=== PATIENT | male | born 1970 | race Caucasian/White ===

== ENCOUNTER 2020-06-12 00:17 | Emergency (ER) | payer OTHER ==
[~2020-06-12] VITALS: Ht 185.4 cm; Wt 69.0 kg
[~2020-06-12 00:17] MED LIST: ALBU90OI INH; AMOX500 PO; CLIN300 PO; CYCL10 PO; DOXY100 PO; DULO30 PO; Esgic Tablet1 EACH PO; HYDACE5 PO; HYDMOR4 PO; META800 PO; METPRE4DP PO; NAPR500 PO; NAPR550 PO; OXYACE5T PO; OXYC10TA19 PO; RXHYDACE PO; TRAM50 PO; TRAZ50 PO; ZOLP5 PO
[2020-06-12 01:31] LABS: BASOPHILS ABSOLUTE AUTO 0.03 K/mm3 (0.00-0.23); BASOPHILS PERCENT AUTO 0 % (0-2); EOSINOPHILS ABSOLUTE AUTO 0.03 K/mm3 (0.00-0.68); EOSINOPHILS PERCENT AUTO 0 % (0-6); Hematocrit 32.2 % (37.0-53.0); Hemoglobin 10.6 g/dL (13.5-17.5); IMMATURE GRAN ABSOLUTE AUTO 0.06 K/mm3 (0.00-0.10); IMMATURE GRAN PERCENT AUTO 0 % (0-1); LYMPHOCYTES ABSOLUTE AUTO 1.22 K/mm3 (0.84-5.20); LYMPHOCYTES PERCENT AUTO 8 % (21-46); MONOCYTES ABSOLUTE AUTO 0.99 K/mm3 (0.16-1.47); MONOCYTES PERCENT AUTO 7 % (4-13); Mean Corpuscular HGB 31.3 pg (26.0-34.0); Mean Corpuscular HGB Conc 32.9 g/dL (31.5-36.5); Mean Corpuscular Volume 95 fL (80-100); Mean Platelet Volume 10.7 fL (9.1-12.4); NEUTROPHILS ABSOLUTE AUTO 12.34 K/mm3 (1.96-9.15); NEUTROPHILS PERCENT AUTO 84 % (41-73); Platelet Count 218 K/mm3 (150-400); RDW Coefficient Variation 14.1 % (11.7-14.2); RDW Standard Deviation 49.4 fL (35.1-46.3); Red Blood Cell Count 3.39 M/mm3 (4.30-5.90); White Blood Cell Count 14.67 K/mm3 (4.00-11.30)
[2020-06-12 01:50] LABS: Alanine Aminotransfer (ALT/SGP 34 U/L (12-78); Albumin/Globulin Ratio 0.7 (0.8-1.8); Alk Phos 115 U/L (50-136); Anion Gap 6 mmol/L (6-16); Aspartate Aminotrans (AST/SGOT 25 U/L (12-37); Bilirubin, Total 0.4 mg/dL (0.1-1.0); Blood Urea Nitrogen 22 mg/dL (8-24); Bun/Creatinine Ratio 28.3 (12.0-20.0); CO2, Blood 28 mmol/L (21-32); Calcium, Blood 8.5 mg/dL (8.5-10.1); Chloride, Blood 107 mmol/L (98-108); Creatinine, Blood 0.78 mg/dL (0.60-1.20); Globulin, Blood 4.2 g/dL (2.2-4.0); Glomerular Filtration Rate >60 (60-); Glucose, Blood 97 mg/dL (70-99); Potassium, Blood 3.4 mmol/L (3.5-5.5); Sodium, Blood 141 mmol/L (136-145); Total Protein, Blood 7.2 g/dL (6.4-8.2)
[2020-06-12] MEDS ORDERED: Cleocin HCl300 MG PO (03:07)
== END 2020-06-12 03:20 | disposition home or self-care (01) ==
LOC: ER 00:17
PROVIDERS: Emergency Medicine
DX: L03.114 Cellulitis of left upper limb (principal); F17.200 Nicotine dependence, unspecified, uncomplicated
CPT/HCPCS: 36415; 73201; 80053; 83605; 85025; 87040; 96361; 96365; 96375; 99284-25; J2405; J3010; J7030; Q9967

== ENCOUNTER 2020-07-01 07:09 | Emergency (ER) | payer OTHER ==
[~2020-07-01] VITALS: Ht 185.4 cm; Wt 68.0 kg
[~2020-07-01 07:09] MED LIST changes: +Cleocin HCl300 MG PO
[2020-07-01] MEDS ORDERED: CEPH500 PO (07:38)
[2020-07-01] MEDS ORDERED: NAPROXEN250 M1 PO (07:39)
== END 2020-07-01 07:46 | disposition home or self-care (01) ==
LOC: ER 07:09
DX: M70.22 Olecranon bursitis, left elbow (principal); F17.200 Nicotine dependence, unspecified, uncomplicated
CPT/HCPCS: 99283; A9270

== ENCOUNTER 2021-11-07 13:55 | Emergency (ER) | payer OTHER ==
[~2021-11-07] VITALS: Ht 185.4 cm; Wt 84.2 kg
[~2021-11-07 13:55] MED LIST changes: +CEPH500 PO; +NAPROXEN250 M1 PO
[2021-11-07] MEDS ORDERED: NAPR500 PO (15:05)
== END 2021-11-07 15:09 | disposition home or self-care (01) ==
LOC: ER 13:55
DX: M17.12 Unilateral primary osteoarthritis, left knee (principal); F17.200 Nicotine dependence, unspecified, uncomplicated; Z88.6 Allergy status to analgesic agent; Z88.5 Allergy status to narcotic agent
CPT/HCPCS: 73562-LT; J1885

== ENCOUNTER 2022-02-20 00:15 | Emergency (ER) | payer OTHER ==
[~2022-02-20] VITALS: Ht 185.4 cm; Wt 72.6 kg
[2022-02-20] MEDS ORDERED: ABILIFY5 MG PO (01:03)
[2022-02-20] MEDS ORDERED: HYDHCL25 PO (01:09)
[2022-02-20] MEDS ORDERED: SULTRIDS PO (01:09)
== END 2022-02-20 01:33 | disposition home or self-care (01) ==
LOC: ER 00:15
DX: L73.9 Follicular disorder, unspecified (principal); L03.114 Cellulitis of left upper limb; L03.113 Cellulitis of right upper limb; F17.200 Nicotine dependence, unspecified, uncomplicated; Z79.899 Other long term (current) drug therapy
CPT/HCPCS: 99282; A9270

== ENCOUNTER 2023-03-02 01:18 | Emergency (ER) | payer OTHER ==
[~2023-03-02] VITALS: Ht 185.4 cm; Wt 81.7 kg
[~2023-03-02 01:18] MED LIST changes: +ABILIFY5 MG PO; +HYDHCL25 PO; +SULTRIDS PO
[2023-03-02 03:12] LABS: BASOPHILS ABSOLUTE AUTO 0.06 K/mm3 (0.00-0.23); BASOPHILS PERCENT AUTO 1 % (0-2); EOSINOPHILS ABSOLUTE AUTO 0.74 K/mm3 (0.00-0.68); EOSINOPHILS PERCENT AUTO 11 % (0-6); Hematocrit 38.2 % (37.0-53.0); Hemoglobin 12.9 g/dL (13.5-17.5); IMMATURE GRAN ABSOLUTE AUTO 0.01 K/mm3 (0.00-0.10); IMMATURE GRAN PERCENT AUTO 0 % (0-1); LYMPHOCYTES ABSOLUTE AUTO 1.76 K/mm3 (0.84-5.20); LYMPHOCYTES PERCENT AUTO 25 % (21-46); MONOCYTES ABSOLUTE AUTO 0.66 K/mm3 (0.16-1.47); MONOCYTES PERCENT AUTO 10 % (4-13); Mean Corpuscular HGB 31.2 pg (26.0-34.0); Mean Corpuscular HGB Conc 33.8 g/dL (31.5-36.5); Mean Corpuscular Volume 93 fL (80-100); Mean Platelet Volume 9.5 fL (9.1-12.4); NEUTROPHILS ABSOLUTE AUTO 3.75 K/mm3 (1.96-9.15); NEUTROPHILS PERCENT AUTO 54 % (41-73); Platelet Count 262 K/mm3 (150-400); RDW Coefficient Variation 14.2 % (11.7-14.2); RDW Standard Deviation 48.1 fL (35.1-46.3); Red Blood Cell Count 4.13 M/mm3 (4.30-5.90); White Blood Cell Count 6.98 K/mm3 (4.00-11.30)
[2023-03-02 03:35] LABS: Albumin, Blood 3.6 g/dL (3.4-5.0); Bilirubin, Total 0.2 mg/dL (0.1-1.0); Bun/Creatinine Ratio 19.7 (12.0-20.0); Calcium, Blood 8.7 mg/dL (8.5-10.1); Creatinine, Blood 0.86 mg/dL (0.60-1.20); Globulin, Blood 3.5 g/dL (2.2-4.0); Potassium, Blood 3.3 mmol/L (3.5-5.5); Total Protein, Blood 7.1 g/dL (6.4-8.2)
[2023-03-02 04:30] VITALS: BP 148/79
[2023-03-02] MEDS ORDERED: SULTRIDS PO (04:42)
[2023-03-02] MEDS ORDERED: CEPH500 PO (04:42)
== END 2023-03-02 05:04 | disposition home or self-care (01) ==
LOC: ER 01:18
PROVIDERS: Emergency Medicine
DX: L03.115 Cellulitis of right lower limb (principal); F17.200 Nicotine dependence, unspecified, uncomplicated
CPT/HCPCS: 73590; 80053; 85025; 93971; 99284-25; A9270

== ENCOUNTER 2024-05-22 12:35 | Emergency (ER) | payer OTHER ==
[~2024-05-22] VITALS: Ht 182.9 cm; Wt 99.8 kg
[2024-05-22 13:30] VITALS: BP 136/118
[2024-05-22 14:28] LABS: Hematocrit 49.9 % (37.0-53.0); Mean Corpuscular HGB 31.2 pg (26.0-34.0); Mean Corpuscular HGB Conc 34.1 g/dL (31.5-36.5); Mean Corpuscular Volume 92 fL (80-100); Mean Platelet Volume 9.6 fL (9.1-12.4); Platelet Count 271 K/mm3 (150-400); RDW Coefficient Variation 14.7 % (11.7-14.2); RDW Standard Deviation 49.1 fL (35.1-46.3); Red Blood Cell Count 5.45 M/mm3 (4.30-5.90); White Blood Cell Count 9.38 K/mm3 (4.00-11.30)
[2024-05-22 14:50] LABS: BASOPHILS PERCENT MAN 0 % (0-2); EOSINOPHILS ABSOLUTE MAN 0.28 K/mm3 (0.00-0.68); EOSINOPHILS PERCENT MAN 3 % (0-6); LYMPHOCYTES % ATYPICAL MANUAL 1 % (0-0); LYMPHOCYTES PERCENT MAN 15 % (21-46); MONOCYTES ABSOLUTE MAN 0.84 K/mm3 (0.16-1.47); MONOCYTES PERCENT MAN 9 % (4-13); NEUTROPHILS ABSOLUTE MAN 6.75 K/mm3 (1.96-9.15); SEG NEUTROPHILS PERCENT MAN 72 % (41-73); TOTAL CELLS COUNTED 100
[2024-05-22 15:01] LABS: Albumin, Blood 3.8 g/dL (3.4-5.0); Albumin/Globulin Ratio 0.8 (0.8-1.8); Bilirubin, Total 0.4 mg/dL (0.1-1.0); Bun/Creatinine Ratio 18.5 (12.0-20.0); Calcium, Blood 9.7 mg/dL (8.5-10.1); Creatinine, Blood 0.92 mg/dL (0.60-1.20); Globulin, Blood 4.6 g/dL (2.2-4.0); Potassium, Blood 3.9 mmol/L (3.5-5.5); Total Protein, Blood 8.4 g/dL (6.4-8.2)
[2024-05-22] MEDS ORDERED: PredniSONE 20 MG Tab PO ONE (18:40)
[2024-05-22] MEDS ORDERED: Prednisone20 MG PO (18:40)
[2024-05-22] MEDS ORDERED: Ipratropium/Albuterol SulF 2.5-0.5MG/3 ML Amp INH ONE (18:40)
[2024-05-22] MEDS ORDERED: RX Prepack Albuterol 1 PREPACK/6.7 GM INH UD ONE (18:40)
== END 2024-05-22 19:10 | disposition home or self-care (01) ==
LOC: ER 12:35
PROVIDERS: Physician Assistant
DX: J44.1 Chronic obstructive pulmonary disease with (acute) exacerbation (principal); J06.9 Acute upper respiratory infection, unspecified; F17.200 Nicotine dependence, unspecified, uncomplicated; Z79.899 Other long term (current) drug therapy
CPT/HCPCS: 71046; 80053; 83690; 85025; 93005; 93010; 94640; 94664; 99283-25; A9270; J7512